=== PATIENT | male | born 1955 | race African-American/Black ===

== ENCOUNTER 2017-05-12 13:34 | Emergency (ER) | payer MEDICAID ==
[~2017-05-12] VITALS: Ht 185.4 cm; Wt 75.0 kg
[~2017-05-12 13:34] MED LIST: DOCU1CAP39 PO; DOXY100T PO
[2017-05-12 13:35] VITALS: BP 153/84; PULSE 102; RESP 20; TEMP 98.3; O2SAT 94
[2017-05-12] MEDS ORDERED: KETOROLAC TROMETHAMINE 60 MG/2 ML (IM) VIAL IM ONE (15:15)
--- NOTE | 2017-05-12 15:28 | PD ---
HPI Chief Complaint: Musculoskeletal Complaint Time Seen by Provider: 14:20 Travel History International Travel<30 days: No Contact w/Intl Traveler<30days: No History of Present Illness HPI 62-year-old male presents to the emergency room for evaluation of left elbow pain and swelling for the past week. Patient denies trauma or injury. Pain is worse with any range of motion of the left upper extremity. Radiates into the shoulder. States he has been applying ibuprofen and topical medications without significant relief in symptoms. States the swelling has decreased from yesterday. Patient denies any medical conditions other than gout. States he has not taken his gout medication. Denies fever, chills, nausea, and vomiting. PFSH Past Medical History Arthritis: Yes Social History Alcohol Use: Yes (BEER ) Tobacco Use: Yes (1/2 PPD) Substance Use: No Allergies-Medications (Allergen,Severity, Reaction): Coded Allergies: No Known Allergies (Unverified , 11/01/15) Reported Meds & Prescriptions Reported Meds & Active Scripts Active Doxycycline Hyclate 100 mg (Doxycycline Hyclate) 100 Mg Tab 100 Mg PO BID 10 Days Colace 100 Mg Cap (Docusate Sodium) 100 Mg Cap 100 Mg PO BID 14 Days Review of Systems Except as stated in HPI: all other systems reviewed are Neg Physical Exam Narrative GENERAL: Well-nourished, well-developed male in no acute distress. Afebrile. Ambulatory. SKIN: Focused skin assessment warm/dry. HEAD: Normocephalic. EYES: No scleral icterus. No injection or drainage. NECK: Supple, trachea midline. No JVD or lymphadenopathy. CARDIOVASCULAR: Regular rate and rhythm without murmurs, gallops, or rubs. RESPIRATORY: Breath sounds equal bilaterally. No accessory muscle use. MUSCULOSKELETAL: No cyanosis. Mild edema of the left elbow. 2+ radial pulse. Radial, ulnar, and median nerves intact in the left upper extremity. Full range of motion of the left arm. Data Data Last Documented VS Vital Signs Date Time Temp Pulse Resp B/P (MAP) Pulse Ox O2 Delivery O2 Flow Rate FiO2 05/12/17 13:35 98.3 102 20 153/84 (107) 94 Room Air Orders Orders Ketorolac Inj (Toradol Inj) (05/12/17 15:15) [facility] Medical Decision Making Medical Screen Exam Complete: Yes Emergency Medical Condition: Yes Medical Record Reviewed: Yes Differential Diagnosis Olecranon bursitis, cellulitis, abscess Narrative Course 62-year-old male presents to the emergency room for evaluation of left elbow pain and swelling for the past week. Denies trauma or injury. Left upper extremity is neurovascularly intact with 2+ radial pulse. Radial, ulnar, and median nerves intact. No evidence of infection. No indication for imaging. Patient given Toradol in the ED. History and physical exam are consistent with olecranon bursitis. Discharged with Vicoprofen and told to follow-up with a PCP or return for worsening symptoms. He understands and agrees to plan. Diagnosis Primary Impression: Olecranon bursitis of left elbow Referrals: Primary Care Physician Additional Instructions: Take ibuprofen with food as directed, as needed for pain. Apply ice to the affected area for 20 minutes at a time, as needed for pain and swelling. Follow-up with a primary care physician. Return to the emergency room for worsening symptoms. Med/Other Pt SpecificInfo: Prescription(s) given Disposition: 01 DISCHARGE HOME Condition: Stable Kimberly Hilliard May 12, 2017 15:28
[2017-05-12] MEDS ORDERED: IBUP-232 PO (15:29)
== END 2017-05-12 16:02 | disposition home or self-care (01) ==
LOC: NEPD 13:34
DX: M70.22 Olecranon bursitis, left elbow (principal); M19.90 Unspecified osteoarthritis, unspecified site; F17.200 Nicotine dependence, unspecified, uncomplicated; Z79.899 Other long term (current) drug therapy
CPT/HCPCS: 96372; 99284; J1885